=== PATIENT | male | born 2000 | race Caucasian/White ===

== ENCOUNTER 2022-03-06 03:34 | Emergency (ER) | payer OTHER ==
[2022-03-06] MEDS ORDERED: Ondansetron PF 4 MG/2 ML Vial ONE (04:04)
[2022-03-06 04:22] LABS: #Basophils 0.1 10x3/uL (0.0-0.2); #Monocytes 0.5 10x3/uL (0.0-1.1); #Neutrophils 5.1 10x3/uL (1.5-8.4); %Basophils 0.7 % (0.0-2.0); %Eosinophils 0.4 % (0.0-6.0); %Lymphocytes 20.7 % (18.0-47.0); %Monocytes 6.7 % (0.0-10.0); %Neutrophils 70.8 % (40.0-75.0); Hemoglobin 15.4 g/dL (13.5-17.5); Mean Corpuscular HGB CONC 34.6 g/dL (32.0-36.0); Mean Corpuscular Hemoglobin 29.1 pg (27.0-33.0); Mean Platelet Volume 9.8 fl (7.4-10.4); Platelet Count 323 10x3/uL (150-450); White Blood Cell (WBC) Count 7.2 10x3/uL (3.5-10.5)
[2022-03-06 04:35] LABS: ALT (SGPT) 16 U/L (8-55); AST (SGOT) 24 U/L (5-34); Albumin 4.7 g/dL (3.5-5.0); Alcohol 311 mg/dL (Less than 10); Alkaline Phosphatase 50 U/L (50-130); Anion Gap 18 mmol/L (10-20); BUN (Urea Nitrogen) 13 mg/dL (8.9-20.6); Bilirubin, Total 0.6 mg/dL (0.2-1.2); Calc. Creatinine Clearance 0 mL/min (70-130); Calcium 9.1 mg/dL (7.8-10.44); Carbon Dioxide 22 mmol/L (22-29); Chloride 105 mmol/L (98-107); Estimated GFR 112; Globulin 3.1 g/dL (2.4-3.5); Glucose 126 mg/dL (70-105); Lipase 36 U/L (8-78); Magnesium 2.4 mg/dL (1.7-2.2); Potassium 2.9 mmol/L (3.5-5.1); Protein, Total 7.8 g/dL (6.0-8.3); Sodium 142 mmol/L (136-145)
[2022-03-06] MEDS ORDERED: Potassium Chloride 20 MEQ TAB ONE (07:17)
== END 2022-03-06 09:50 | disposition home or self-care (01) ==
LOC: CSHERS 03:34
DX: F10.129 Alcohol abuse with intoxication, unspecified (principal); E87.6 Hypokalemia; F17.200 Nicotine dependence, unspecified, uncomplicated
CPT/HCPCS: 70450; 72125; 80053; 80307; 83690; 83735; 85025; 96361; 96374; J2405